=== PATIENT | female | born 1975 | race Caucasian/White ===

== ENCOUNTER 2016-12-29 16:32 | Emergency (ER) | payer OTHER | END 2016-12-29 19:03 | disposition left against medical advice (07) | LOC: UCCORT 16:32 | DX: J11.1 Influenza due to unidentified influenza virus with other respiratory manifestations (principal); Z53.21 Procedure and treatment not carried out due to patient leaving prior to being seen by health care provider ==

== ENCOUNTER 2018-06-14 14:28 | Emergency (ER) | payer OTHER ==
[2018-06-14 16:11] VITALS: BP 128/80
--- NOTE | 2018-06-14 16:15 | UC ---
UC General HPI - HPI Summary HPI Summary: sore throat x 1 week, pt states seen by her pcp a week ago for a sore throat. tx with pseudophed and prednisone for 5 days. almost got better but now her throat is feeling much worse. subjective fever. no change in voice or difficulty with swallow but hurts to swallow. pain radiates into neck and jaw. neck is swollen, pt pointing her her lymph nodes. prior hx mono. - History of Current Complaint Stated Complaint: THROAT COMP Time Seen by Provider: 06/14/18 16:08 Hx Obtained From: Patient Hx Last Menstrual Period: 12 yrs Onset/Duration: Gradual Onset Timing: Constant Associated Signs & Symptoms: Positive: Fever, Headache - Allergy/Home Medications Allergies/Adverse Reactions: Allergies Allergy/AdvReac Type Severity Reaction Status Date / Time MS Sulfa Antibiotics Allergy Unknown Verified 06/14/18 16:01 [Sulfa Antibiotics] Reaction Details Sulfa (Sulfonamide Allergy Unknown Verified 06/14/18 16:01 Antibiotics) Reaction Details Home Medications: Home Medications Pseudoephedrine TAB* [Sudafed TAB*] 30 mg PO Q4H PRN 06/14/18 [History Confirmed 06/14/18] predniSONE TAB* [Deltasone 10 MG TAB*] 10 mg PO DAILY 06/14/18 [History Confirmed 06/14/18] PMH/Surg Hx/FS Hx/Imm Hx Psychological History: Depression - Surgical History Surgical History: Yes Surgery Procedure, Year, and Place: cholecystectomy 1999 - Family History Known Family History: Positive: None Negative: Cardiac Disease, Hypertension, Diabetes - Social History Occupation: Unemployed Lives: With Family Alcohol Use: None Substance Use Type: None Smoking Status (MU): Heavy Every Day Tobacco Smoker - Immunization History Most Recent Tetanus Shot: UNKNOWN Vaccination Up to Date: Yes Review of Systems Constitutional: Fever Skin: Negative Eyes: Negative ENT: Sore Throat Respiratory: Negative Cardiovascular: Negative Gastrointestinal: Negative Genitourinary: Negative Motor: Negative Neurovascular: Negative Musculoskeletal: Negative Neurological: Headache Psychological: Negative Is Patient Immunocompromised?: No All Other Systems Reviewed And Are Negative: Yes Physical Exam Triage Information Reviewed: Yes Appearance: Well-Appearing Vital Signs Reviewed: Yes Eyes: Positive: Conjunctiva Clear ENT: Positive: Pharyngeal erythema - with mild swelling including the uvula but no airway compromise., TMs normal, Uvula midline. Negative: Nasal congestion, Nasal drainage, Trismus, Muffled voice, Hoarse voice, Sinus tenderness Neck: Positive: Supple, Tenderness @ - peritonsilar nodes, Enlarged Nodes @ - peritonsilar nodes Respiratory: Positive: Lungs clear, Normal breath sounds Cardiovascular: Positive: RRR, No Murmur Abdomen Description: Positive: Nontender, No Organomegaly, Soft Bowel Sounds: Positive: Present Musculoskeletal: Positive: ROM Intact Neurological: Positive: Alert Psychological: Positive: Age Appropriate Behavior Skin Exam: Normal Diagnostics - Laboratory Diagnostic Studies Completed/Ordered: rapid strep=neg. tc=pending Course/Dx - Course Course Of Treatment: non toxic, no concern for peritonsilar abscess. rapid strep was neg and tc=pending; however, pt ill x 1 week with much worsening. PE c /w uvulitis and pharyngitis thus will cover with decadron and presumptive bacterial infection. need for close f/u stressed and go to ER for any worsening , pt agrees to both. - Differential Dx - Multi-Symptom Provider Diagnoses: Uvulitis, pharyngitis Discharge - Sign-Out/Discharge Documenting (check all that apply): Patient Departure All imaging exams completed and their final reports reviewed: No Studies - Discharge Plan Condition: Stable Disposition: HOME Prescriptions: Amoxicillin/Clavulanate TAB* [Augmentin TAB 875*] 875 mg PO BID #20 tab Patient Education Materials: Uvulitis (ED), Pharyngitis (ED) Referrals: Erin Hayward MD [Primary Care Provider] - 5 Days - Billing Disposition and Condition Condition: STABLE Disposition: Home
[2018-06-14] MEDS ORDERED: Dexamethasone TAB* 4 MG PO ONE (16:58)
== END 2018-06-14 17:10 | disposition home or self-care (01) ==
LOC: UCCORT 14:28
DX: Z88.1 Allergy status to other antibiotic agents (principal); K12.2 Cellulitis and abscess of mouth; J02.9 Acute pharyngitis, unspecified; F17.210 Nicotine dependence, cigarettes, uncomplicated
CPT/HCPCS: 87070; 87651; 99212; G0463; J8540